=== PATIENT | male | born 1950 ===

== ENCOUNTER 2016-10-23 07:45 | Day surgery (SDC) | payer MEDICARE ==
[2016-10-23 08:25] VITALS: BMI 28.8
[2016-10-23 08:46] VITALS: O2SAT 100
--- NOTE | 2016-10-23 10:15 | CP.SDSHP ---
Same Day Surgery H & P - History Proposed Procedure: COLONSCOPY Pre-Op Diagnosis: SEE NOTES - Previous Medical/Surgical History Cardiac: Hypertension Endocrine/Metabolic: Other Misc: Other - Allergies Allergies: Allergies No Known Allergies Allergy (Verified 10/23/16 08:25) - Physical Exam General Appearance: N Vital Signs: Vital Signs 10/23/16 08:33 Temperature 97 F L Pulse Rate 75 Respiratory 16 Rate Blood Pressure 137/75 O2 Sat by Pulse 100 Oximetry Mental Status: Alert & Oriented x3 Neuro: WNL Heart: Other Lungs: WNL GI: WNL - {Optional Preform as Required} Breast: WNL Abdomen: Other Rectal: Other Integument: WNL : WNL Ortho: Other ENT: WNL - Impression Pt. Evaluated Today:Candidate for Anesthesia & Procedure: Yes - Date & Time Time: 10:15 Short Stay Discharge - Short Stay Discharge Admitting Diagnosis/Reason for Visit: HEMORRHAGE OF ANUS AND RECTUM Disposition: HOME/ ROUTINE
[2016-10-23] MEDS ORDERED: Belladonna-Phenobarbital PO STA (10:16)
[2016-10-23] MEDS ORDERED: Lidocaine Hydrochloride 5 ML INJ ONE (10:18)
[2016-10-23] MEDS ORDERED: Propofol 10 mg/ml Inj (20 ML) ONE (10:18)
[2016-10-23] MEDS ORDERED: Lactated Ringer's 500 ML IV ONE ×2 (10:20)
[2016-10-23 11:03] VITALS: TEMP 98.2
[2016-10-23 11:19] VITALS: RESP 18
[2016-10-23 11:59] VITALS: BP 133/88; PULSE 73
== END 2016-10-23 11:50 | disposition home or self-care (01) ==
LOC: C.ENDO 07:45
PROVIDERS: ATTEND Specialist
DX: D12.0 Benign neoplasm of cecum (principal); K64.8 Other hemorrhoids
CPT/HCPCS: 45385; 88305; J2704; J7120

== ENCOUNTER 2016-12-18 07:26 | Day surgery (SDC) | payer MEDICARE ==
[2016-12-18] MEDS ORDERED: Midazolam 2 MG/2 ML VIAL ONE (08:33)
[2016-12-18] MEDS ORDERED: Propofol 10 mg/ml Inj (20 ML) ONE (08:33)
--- NOTE | 2016-12-18 08:38 | CP.SDSHP ---
Same Day Surgery H & P - History Proposed Procedure: EGD Pre-Op Diagnosis: SEE NOTES - Previous Medical/Surgical History Cardiac: Hypertension Endocrine/Metabolic: Other Misc: Other Pain: 4.Moderate Pain - Allergies Allergies: Allergies No Known Allergies Allergy (Verified 10/23/16 08:25) - Physical Exam General Appearance: N Vital Signs: Vital Signs 12/18/16 07:52 Temperature 96.6 F L Pulse Rate 76 Respiratory 19 Rate Blood Pressure 143/87 O2 Sat by Pulse 99 Oximetry Mental Status: Alert & Oriented x3 Neuro: WNL Heart: Other Lungs: WNL GI: WNL - {Optional Preform as Required} Breast: WNL Abdomen: Other Rectal: Other Integument: WNL : WNL Ortho: Other ENT: WNL - Impression Pt. Evaluated Today:Candidate for Anesthesia & Procedure: Yes - Date & Time Time: 08:38 Short Stay Discharge - Short Stay Discharge Admitting Diagnosis/Reason for Visit: FUNCTIONAL DYSPEPSIA Disposition: HOME/ ROUTINE
[2016-12-18] MEDS ORDERED: Belladonna-Phenobarbital PO STA (08:39)
[2016-12-18 09:05] VITALS: TEMP 97.8
[2016-12-18 09:48] VITALS: BP 126/87; PULSE 81; RESP 21; O2SAT 98
== END 2016-12-18 09:48 | disposition home or self-care (01) ==
LOC: C.ENDO 07:26
PROVIDERS: ATTEND Specialist
DX: K44.9 Diaphragmatic hernia without obstruction or gangrene (principal); K29.60 Other gastritis without bleeding; K20.9 Esophagitis, unspecified; I10 Essential (primary) hypertension
CPT/HCPCS: 43239; 88305; J2250; J2704

== ENCOUNTER 2018-01-22 08:16 | Day surgery (SDC) | payer MEDICARE ==
[2018-01-15 10:18] VITALS: BMI 30.1
[2018-01-22] MEDS ORDERED: Lidocaine 2% Jelly (Uro-Jet) ONE (09:40)
[2018-01-22] MEDS ORDERED: Ciprofloxacin 400mg/200ml D5W 0 MG/0 ML BAG IVPB ONE (09:40)
[2018-01-22] MEDS ORDERED: Gentamicin 80 mg in 0.9% NS 160 MG/200 ML BAG IVPB ONE (09:40)
[2018-01-22] MEDS ORDERED: cefTRIAXone 1 gm 1 GM/100 ML BAG IVPB ONE (09:44)
[2018-01-22] MEDS ORDERED: Propofol 10 mg/ml Inj (20 ML) ONE (09:52)
[2018-01-22] MEDS ORDERED: Lidocaine Hydrochloride 5 ML INJ ONE (09:52)
[2018-01-22] MEDS ORDERED: Midazolam 2 MG/2 ML VIAL ONE (09:52)
[2018-01-22 11:31] VITALS: BP 139/69; PULSE 63; RESP 18; TEMP 98; O2SAT 98
--- NOTE | 2018-01-22 21:27 | OP ---
PROCEDURE DATE: 01/22/2018 LOCATION: [facility]. PREOPERATIVE DIAGNOSES: Elevated prostate-specific antigen, previous abnormal prostatic biopsies. PROCEDURE: Diagnostic transrectal ultrasound guidance and prostatic biopsies. OPERATIVE INDICATION: The patient confirmed in the holding area. He has not been taking any NSAIDs or aspirin for over 10 days. He was told in the unlikely event postoperatively he has heavy bleeding, fever or chills to call me immediately and/or go to the emergency room. DESCRIPTION OF OPERATION: The patient was brought to the operating room. Rocephin 1 g and 160 mg of gentamicin were administered intravenously. He was prepped and draped in the usual fashion in lithotomy position, and his rectum was cleansed with Betadine. The transducer was introduced into the prostate. Examination revealed no hypoechoic lesions or stones. Total volume was 39.9 cm3. We now proceeded for biopsy. Since the previous biopsy showed suspicious but not diagnostic areas in the left base and mid and right base, re-biopsy was done today. The prostate was divided to six sections. Two biopsies from each section; however, the left base and left mid had three specimens submitted. Postoperatively, we maintained pressure for about five minutes, and no significant bleeding was noted. The transducer was removed. The patient tolerated the procedure well. Andrea Bailey MD
== END 2018-01-22 12:27 | disposition home or self-care (01) ==
LOC: C.SDS 08:16
PROVIDERS: ATTEND Urology
DX: R97.20 Elevated prostate specific antigen [PSA] (principal)
CPT/HCPCS: 55700; 88305; 88342; J0696; J1580